=== PATIENT | female | born 1985 | race Two or more races ===

== ENCOUNTER 2024-05-26 13:19 | Emergency (ER) | payer BC, OTHER ==
[~2024-05-26] VITALS: Ht 167.6 cm; Wt 104.3 kg
[2024-05-26 13:51] VITALS: BP 128/87; O2SAT 97
[2024-05-26] MEDS ORDERED: [UNRECOGNIZED DRUG - CODE] (13:52)
[2024-05-26] MEDS ORDERED: SEROQUEL200 MG (13:52)
[2024-05-26] MEDS ORDERED: KETOROLAC TROMETHAMINE 60 MG VIAL IM ONE (14:15)
[2024-05-26] MEDS ORDERED: KETO10TA2 PO (15:13)
== END 2024-05-26 15:25 | disposition home or self-care (01) ==
LOC: ER 13:21
DX: S09.8XXA Other specified injuries of head, initial encounter (principal); W19.XXXA Unspecified fall, initial encounter; Y93.89 Activity, other specified; Y92.098 Other place in other non-institutional residence as the place of occurrence of the external cause; Y99.8 Other external cause status